=== PATIENT | female | born 1950 ===

== ENCOUNTER 2021-08-31 22:33 | Emergency (ER) | payer OTHER ==
[~2021-08-31] VITALS: Ht 154.9 cm; Wt 62.6 kg
[~2021-08-31 22:33] MED LIST: AVALIDE 150-12.1 TA1 PO; LIPITOR20 MG PO; LISINOPRIL2.5 MG PO
[2021-08-31] MEDS ORDERED: ZETIA10 MG (23:16)
[2021-09-01] MEDS ORDERED: MECLIZINE HCL25 MG PO (01:57)
== END 2021-09-01 02:10 | disposition home or self-care (01) ==
LOC: ER 22:33
DX: R42 Dizziness and giddiness (principal)